=== PATIENT | male | born 1985 | race Caucasian/White ===

== ENCOUNTER 2021-01-11 01:55 | Emergency (ER) | payer MEDICAID ==
[~2021-01-11] VITALS: Ht 170.2 cm; Wt 59.0 kg
[2021-01-11] MEDS ORDERED: DILAUDID1 MG/1 M1 PO (02:38)
[2021-01-11] MEDS ORDERED: STELARA90 MG/1 ML SUBQ (02:39)
[2021-01-11 02:59] LABS: AMP/METHAMP Negative (Negative); BARBITURATES Negative (Negative); BENZODIAZEPINES Negative (Negative); COCAINE Negative (Negative); METHADONE Negative (Negative); OPIATES Negative (Negative); PCP Negative (Negative); THC Negative (Negative)
[2021-01-11 03:17] VITALS: BP 122/77
== END 2021-01-11 03:24 | disposition left against medical advice (07) ==
LOC: M.ERS 01:55
PROVIDERS: Personal Emergency Response Attendant
DX: G89.29 Other chronic pain (principal); M25.511 Pain in right shoulder; Z88.8 Allergy status to other drugs, medicaments and biological substances; Z79.899 Other long term (current) drug therapy